=== PATIENT | female | born 1955 | race Caucasian/White ===

== ENCOUNTER → 2019-01-22 | Outpatient (CLI) | payer OTHER ==
[~2019-01-22] MED LIST: ACET325T21 PO; ALBU10PO INH; ALBU8.5H8 INH; B COMPLEX PO; GABA-826 PO; IRON PO; LORA-247 PO; MULT-516 PO; OMNIPAQUE 350 MG/ML, 75ML BOTTLE ONE; TRAM50TA2 PO
== END | disposition home or self-care (01) ==
LOC: CFH 08:57
PROVIDERS: ATTEND Family Medicine
DX: Z12.31 Encounter for screening mammogram for malignant neoplasm of breast (principal); R91.1 Solitary pulmonary nodule; Z82.49 Family history of ischemic heart disease and other diseases of the circulatory system
CPT/HCPCS: 71260; 77067; Q9967